=== PATIENT | male | born 1965 | race Caucasian/White ===

== ENCOUNTER 2018-06-25 06:58 | Emergency (ER) | payer BC ==
[2018-06-25] MEDS ORDERED: Ondansetron INJ* 2 MG/ML VIAL ONE (07:15)
[2018-06-25] MEDS ORDERED: HYDROmorphone INJ* 2 MG/ML CARPUJECT SYRINGE ONE (07:15)
[2018-06-25] MEDS ORDERED: Ondansetron INJ* 2 MG/ML VIAL IV ONE (07:17)
[2018-06-25] MEDS ORDERED: HYDROmorphone INJ* 2 MG/ML CARPUJECT SYRINGE IV SLOW PU ONE (07:17)
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
[2018-06-25 08:13] LABS: Hematocrit 44 % (42-52); Hemoglobin 14.8 g/dl (14.0-18.0); Mean Corpuscular HGB Conc 34 g/dl (31-36); Mean Corpuscular Hemoglobin 31 pg (27-31); Mean Corpuscular Volume 90 fL (80-94); Mean Platelet Volume 7.2 um3 (7.4-10.4); Platelet Count 252 10^3/ul (150-450); Red Blood Count 4.84 10^6/ul (4.00-5.40); Red Cell Distribution Width 13 % (10.5-15); White Blood Count 16.5 10^3/ul (3.5-10.8)
[2018-06-25 08:24] LABS: EGFR Non-African American 92.9 (>60)
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
[2018-06-25] MEDS ORDERED: Iohexol 350* (CONTRAST) 500 ML MDV IV ONE (09:35)
--- NOTE | 2018-06-25 10:03 | RAD ---
Indication: Right inguinal hematoma. Contrast: Administered 99.1 ml of OMNIPAQUE 350 mg/ml CTA of the pelvis performed after IV contrast administration. Coronal and sagittal reconstructed images were obtained. The distal abdominal aorta, common iliac arteries, external iliac arteries, common femoral artery and visualized femoral artery are patent. No evidence of large vessel injury is noted. There is a large right inguinal mass which is high density consistent with inguinal hematoma. This measures at least 5.3 cm in length x 5.3 cm AP x 5.8 cm in greatest width. It is increased in density however no active extravasation of contrast is noted. No underlying bony injury is noted. Pelvic ring appears intact. There is slight extension of the hematoma to the right rectus muscle. No intraperitoneal blood is noted. The urinary bladder is otherwise unremarkable. No intraperitoneal fluid is noted. Degenerative changes of the lumbar spine are noted. IMPRESSION: Right inguinal hematoma with high density. No evidence of active extravasation of contrast into the hematoma is noted. No evidence of common femoral or femoral artery injury is noted. No underlying bony injury is noted. No evidence of intraperitoneal blood or fluid is noted.
[2018-06-25 11:38] VITALS: BP 128/82
== END 2018-06-25 11:36 | disposition left against medical advice (07) ==
LOC: ED 06:58
DX: S30.1XXA Contusion of abdominal wall, initial encounter (principal); W50.1XXA Accidental kick by another person, initial encounter; Y92.9 Unspecified place or not applicable; R10.9 Unspecified abdominal pain; R11.0 Nausea; Z87.81 Personal history of (healed) traumatic fracture
CPT/HCPCS: 36415; 72191; 80053; 85027; 86850; 86900; 86901; 96374; 96375; 99283; J1170; J2405; Q9967